=== PATIENT | female | born 2000 | race Caucasian/White ===

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

== ENCOUNTER 2019-03-05 18:55 | Emergency (ER) | payer OTHER ==
[~2019-03-05] VITALS: Ht 172.7 cm; Wt 90.3 kg
--- OUTSIDE RECORDS SUMMARY | 2019-03-05 18:57 | XMS REPORT ---
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 Allergies, Adverse Reactions, Alerts This patient has no known allergies or adverse reactions. Medications This patient has no known medications. Results Test Description Test Time Test Comments Text Results Atomic Results Result Comments TRANSVAG OB 1ST-HOPD 2018-09-01 01:33:00 [place] [id number] Patient Name: KEVIN CARDENAS MR #: [id number] : 2000 Age/Sex: 18/F Req #: [id number] Adm Physician: Ordered by: MARY MILLER MD Report #: [id number] Location: [facility] Room/Bed: Procedure: [id number] Exam Date: 09/01/18 Exam Time: 0005 REPORT STATUS: Signed EXAM: First Trimester Obstetric Pelvic Ultrasound INDICATION: Vaginal bleeding. COMPARISON: None TECHNIQUE: Grayscale transverse and sagittal transvaginal images were obtained of the pelvis. Transvaginal imaging was medically necessary to better evaluate the endometrium, adnexa, and fetus. CLINICAL HISTORY: 18 year old A2 Last menstrual period: 06/28/2018 Clinical gestational age: 9 weeks 2 days FINDINGS: Uterus: Orientation: Normal Size: 6.2 x 3.9 x 3.8 cm, normal Mass: None Cervix: Normal Gestational Sac: Location: Intrauterine Appearance: Flattened, extending into the lower uterine segment. Subchorionic hemorrhage: None Yolk sac: Not definitively visualized on the provided images. Embryo/Fetus: Berry rump length: 1.7 cm Estimated sonographic GA: 8 weeks 1 day Cardiac activity: None detected Right ovary Size: 2.2 x 1.3 x 2.4 cm Mass/Cyst: None Left ovary Size: 2.5 x 2.3 x 2.1 cm Mass/Cyst: 0.9 x 1.2 x 0.8 cm complex cyst, likely corpus luteum Cul-de-sac: No free fluid IMPRESSION: 1. Nonviable intrauterine . 2. Estimated sonographic gestational age: 8 weeks 1 day Signed by: DR. Guerrero Segovia MD on 09/01/2018 1:41 AM Dictated By: GUERRERO SEGOVIA MD 0 Transcribed By: LAWRENCE on 09/01/18140 COPY TO: MARY MILLER MD
[2019-03-05] MEDS ORDERED: POTASSIUM CHLORIDE 20 MEQ TAB CR PO STA (20:23)
[2019-03-05] MEDS ORDERED: POTASSIUM CHLORIDE 20 MEQ TAB CR PO ONE (20:49)
--- NOTE | 2019-03-05 22:41 | Diagnostic Imaging Report ---
HISTORY: Right upper quadrant pain TECHNIQUE: Selected static images from complete abdominal ultrasound provided for INTERPRETATION: COMPARISON: None. FINDINGS: Pancreas: Poorly visualized due to bowel gas. Liver: Measures 11.4 cm in sagittal plane. The echotexture is normal. No mass in the visualized portions. Portal Vein: Measures 0.9 cm. Hepatopetal flow on spectral Doppler interrogation. Biliary Tree: Normal Gallbladder: No evidence of gallstone, sludge or gallbladder wall thickening. CBD: 0.4 cm. Right Kidney: Length is 10.7 cm. Echotexture is normal. No mass or hydronephrosis. Left Kidney: Length is 9.8 cm. Echotexture is normal. No mass or hydronephrosis. Spleen: 11.2 cm in length. No evidence for mass. No free fluid The aorta is poorly visualized due to bowel gas. IVC is grossly normal. IMPRESSION: No sonographic abnormalities to explain pain. The visualized structures are normal. Signed by: Dr. Carmen Lua MD on 03/05/2019 10:38 PM
--- NOTE | 2019-03-05 22:44 | Diagnostic Imaging Report ---
Pelvic ultrasound transvaginal uterus CPT code: 43366 History: Pelvic cramping Comparison: None. Findings: Images were obtained with the endovaginal probe. The uterus is anteverted. It measures 6.1 cm. The endometrium is prolific. There is a well-defined intrauterine gestational sac. A single yolk sac and embryo are identified. The crown rump length is 0.71 cm. cardiac activity is 144 bpm. Small subchorionic hemorrhage. The os is closed. There is trace pelvic free fluid. The right ovary measures 1.5 x 1.2 x 2.3 cm. The echotexture is normal. No mass The left ovary measures 2.5 x 2.2 x 3.5 cm. It contains a corpus luteum Blood flow: There is normal blood flow to the ovaries on color Doppler examination. IMPRESSION:: 1. Single, live, intrauterine with estimated gestational age by ultrasound of 6 weeks 5 days. 2. Small subchorionic hemorrhage. Signed by: Dr. Carmen Lua MD on 03/05/2019 10:41 PM
[2019-03-05 23:06] VITALS: BP 127/64
== END 2019-03-05 23:13 | disposition home or self-care (01) ==
LOC: FSED 18:55
DX: Z32.01 Encounter for pregnancy test, result positive (principal); R10.11 Right upper quadrant pain
CPT/HCPCS: 36415; 76700; 76801; 84702; 99284

== ENCOUNTER 2020-12-12 04:10 | Emergency (ER) | payer OTHER ==
[~2020-12-12] VITALS: Ht 172.7 cm; Wt 104.3 kg
[2020-12-12] MEDS ORDERED: ONDANSETRON HCL INJ 2MG/ML 2ML 2 MG/ML VIAL IV STA (04:47)
[2020-12-12] MEDS ORDERED: FAMOTIDINE 20 MG/2 ML VIAL IV STA (04:47)
[2020-12-12] MEDS ORDERED: SODIUM CHLORIDE 0.9% 1000ML 1,000 ML IV SCH (05:00)
[2020-12-12] MEDS ORDERED: ACETAMINOPHEN 325 MG TAB PO ONE (05:00)
[2020-12-12] MEDS ORDERED: DICYCLOMINE HCL 20 MG TAB PO ONE (05:00)
[2020-12-12] MEDS ORDERED: KETOROLAC TROMETHAMINE 30 MG/ML VIAL IV STA (05:00)
[2020-12-12 05:30] LABS: BASOPHILS % 0.1 % (0.0-1.0); EOSINOPHILS % 0.3 % (0.0-6.0); HEMATOCRIT 38.5 % (34.2-44.1); HEMOGLOBIN 12.4 g/dL (12.0-16.0); LYMPHOCYTES # (AUTO) 0.7 (1.0-3.2); LYMPHOCYTES % 8.9 % (18.0-39.1); MEAN CORPUSCULAR HEMOGLOBIN 24.9 pg (28-32); MEAN CORPUSCULAR HGB CONC 32.2 g/dL (31-35); MEAN CORPUSCULAR VOLUME 77.3 fL (81-99); MONOCYTES # (AUTO) 0.6 (0.2-0.8); MONOCYTES % 8.3 % (4.4-11.3); NEUTROPHILS # (AUTO) 6.3 (2.1-6.9); NEUTROPHILS % 81.9 % (38.7-80.0); PLATELET COUNT 302 x10e3/uL (140-360); RED BLOOD COUNT 4.98 x10e6/uL (3.6-5.1); RED CELL DISTRIBUTION WIDTH 14.2 % (11.7-14.4)
[2020-12-12] MEDS ORDERED: ONDANSETRON HCL INJ 2MG/ML 2ML 2 MG/ML VIAL ONE (05:30)
[2020-12-12] MEDS ORDERED: KETOROLAC TROMETHAMINE 30 MG/ML VIAL ONE (05:30)
[2020-12-12] MEDS ORDERED: ACETAMINOPHEN 325 MG TAB ONE (05:31)
[2020-12-12] MEDS ORDERED: FAMOTIDINE 20 MG/2 ML VIAL IV ONE (05:31)
[2020-12-12] MEDS ORDERED: SODIUM CHLORIDE 0.9% 1000ML 1,000 ML ONE (05:31)
[2020-12-12] MEDS ORDERED: DICYCLOMINE HCL 10 MG CAP ONE (05:32)
[2020-12-12] MEDS ORDERED: DICYCLOMINE HCL20 MG PO (06:38)
[2020-12-12] MEDS ORDERED: POTASSIUM CHLO10 ME1 PO (06:40)
[2020-12-12] MEDS ORDERED: IMODIUM A-D2 M2 PO (06:42)
[2020-12-12 06:50] VITALS: BP 103/58
== END 2020-12-12 06:50 | disposition home or self-care (01) ==
LOC: FSED 04:28
DX: B34.9 Viral infection, unspecified (principal); R10.11 Right upper quadrant pain; R11.0 Nausea; K52.9 Noninfective gastroenteritis and colitis, unspecified; E87.6 Hypokalemia
CPT/HCPCS: 36415; 80048; 80076; 81003; 81025; 85025; 96374; 96375; 96376; 99283; J1885; J2405; J7030

== ENCOUNTER 2021-05-27 08:08 | Emergency (ER) | payer OTHER ==
[~2021-05-27] VITALS: Ht 172.7 cm; Wt 106.1 kg
[~2021-05-27 08:08] MED LIST changes: +DICYCLOMINE HCL20 MG PO; +IMODIUM A-D2 M2 PO; +POTASSIUM CHLO10 ME1 PO; -SODIUM CHLORIDE 0.9% 1000ML 1,000 ML IV STA
[2021-05-27] MEDS ORDERED: ONDANSETRON HCL INJ 2MG/ML 2ML 2 MG/ML VIAL IV STA (08:39)
[2021-05-27] MEDS ORDERED: SODIUM CHLORIDE 0.9% 1000ML 1,000 ML IV SCH (08:45)
[2021-05-27] MEDS ORDERED: FAMOTIDINE 20 MG/2 ML VIAL IV STA (08:47)
[2021-05-27] MEDS ORDERED: SODIUM CHLORIDE 0.9% 1000ML 1,000 ML ONE (08:57)
[2021-05-27] MEDS ORDERED: ONDANSETRON HCL INJ 2MG/ML 2ML 2 MG/ML VIAL ONE (08:57)
[2021-05-27] MEDS ORDERED: ONDANSETRON ODT4 MG PO (09:18)
[2021-05-27] MEDS ORDERED: PEPCID20 MG PO (09:18)
== END 2021-05-27 09:38 | disposition home or self-care (01) ==
LOC: FSED 08:40
DX: R11.2 Nausea with vomiting, unspecified (principal); R19.7 Diarrhea, unspecified; R10.32 Left lower quadrant pain
CPT/HCPCS: 80053; 81003; 81025; 85025; 99283; J2405; J7030

== ENCOUNTER 2022-11-27 21:53 | Emergency (ER) | payer OTHER ==
[~2022-11-27] VITALS: Ht 172.7 cm; Wt 73.0 kg
[~2022-11-27 21:53] MED LIST changes: +ONDANSETRON ODT4 MG PO; +PEPCID20 MG PO
== END 2022-11-28 00:03 | disposition home or self-care (01) ==
LOC: FSED 22:03
DX: R20.8 Other disturbances of skin sensation (principal); G62.9 Polyneuropathy, unspecified; D68.59 Other primary thrombophilia
CPT/HCPCS: 99282